=== PATIENT | male | born 1985 | race Caucasian/White ===

== ENCOUNTER 2019-11-04 19:31 | Emergency (ER) | payer SELFPAY ==
[~2019-11-04] VITALS: Ht 172.7 cm; Wt 104.4 kg
--- NOTE | 2019-11-04 19:49 | NUR ---
PT C/O N/V/D SINCE 0600 THIS AM. PT STATES HE CONTINUES WITH DRY HEAVES UP UNTIL THE LEFT THE HOUSE. PT CONNECTED TO MONITORING. FAMILY AT BEDSIDE.
[2019-11-04] MEDS ORDERED: ONDANSETRON 2MG/ML, 2ML ONE (20:20)
[2019-11-04] MEDS ORDERED: SODIUM CHLORIDE FLUSH 10ML SYR IVF ONE (20:30)
[2019-11-04] MEDS ORDERED: ONDANSETRON 2MG/ML, 2ML IVPush ONE (20:30)
[2019-11-04] MEDS ORDERED: SODIUM CHLORIDE 0.9% 1,000ML IVBOLUS ONE (20:30)
[2019-11-04 20:48] LABS: BASOPHILS # (AUTO) 0.03 x10^3/uL (0-0.1); BASOPHILS % (AUTO) 0 % (0-1); EOSINOPHILS % (AUTO) 0 % (1-7); LYMPHOCYTES # (AUTO) 0.83 x10^3/uL (1-3.4); LYMPHOCYTES % (AUTO) 6 % (22-44); MD NO; MEAN CORPUSCULAR HEMOGLOBIN 27.8 pg (27.5-34.5); MEAN CORPUSCULAR HGB CONC 33.5 g/dL (33.2-36.2); MEAN PLATELET VOLUME 8.6 fL (7.4-10.4); MONOCYTES # (AUTO) 0.29 x10^3/uL (0.2-0.8); MONOCYTES % (AUTO) 2 % (2-9); NEUTROPHILS # (AUTO) 13.43 x10^3/uL (1.8-6.8); NEUTROPHILS % (AUTO) 92 % (42-75); PLATELET COUNT 307 x10^3/uL (130-400); RED BLOOD COUNT 5.45 x10^6/uL (4.38-5.82)
[2019-11-04 20:55] LABS: ALANINE AMINOTRANSFERASE 36 U/L (12-78); ALBUMIN 4.3 g/dL (3.4-5.0); ANION GAP 10 mmol/L (5-15); CALCIUM 9.5 mg/dL (8.5-10.1); CHLORIDE 106 mmol/L (98-107); CREATININE 0.82 mg/dL (0.7-1.3)
[2019-11-04 20:57] LABS: ALKALINE PHOSPHATASE 82 U/L (45-117); BILIRUBIN,TOTAL 0.8 mg/dL (0.2-1.0); TOTAL PROTEIN 8.6 g/dL (6.4-8.2)
[2019-11-04] MEDS ORDERED: PROMETHAZINE 25 MG/ML, 1ML ONE (21:32)
--- NOTE | 2019-11-04 21:37 | NUR ---
PT CO OF NAUSEA. MD NOTIFIED. SEE MAR FOR INTERVENTIONS
[2019-11-04] MEDS ORDERED: PROMETHAZINE 25 MG/ML, 1ML IM ONE (22:00)
--- NOTE | 2019-11-04 22:01 | NUR ---
REPORT RECEIVED FROM GIULIA MICHAEL. ALL RESULTS BACK, PATIENT UP FOR RECHECK
[2019-11-04] MEDS ORDERED: METOCLOPRAMIDE 5 MG/ML, 2ML ONE (22:18)
[2019-11-04] MEDS ORDERED: SODIUM CHLORIDE 0.9%, 500ML IVBOLUS ONE (22:30)
[2019-11-04] MEDS ORDERED: POTASSIUM CHLORIDE 20 MEQ TAB.ER.PRT PO ONE (22:30)
[2019-11-04] MEDS ORDERED: METOCLOPRAMIDE 5 MG/ML, 2ML IVPush ONE (22:30)
[2019-11-04] MEDS ORDERED: POTASSIUM CHLORIDE 20 MEQ TAB.ER.PRT ONE (22:31)
--- NOTE | 2019-11-04 22:34 | NUR ---
PATIENT MEDICATED PER EMAR, TOLERATED WELL. IVF RUNNING
[2019-11-04 23:51] VITALS: BP 140/82
--- NOTE | 2019-11-04 23:51 | NUR ---
Patient given discharge instructions and they have confirmed that they understand the instructions. Patient ambulatory with steady gait.
== END 2019-11-04 23:54 | disposition home or self-care (01) ==
LOC: ED 19:56
DX: A08.39 Other viral enteritis (principal); R11.2 Nausea with vomiting, unspecified
CPT/HCPCS: 36415; 80053; 83605; 83690; 85025; 96361; 96372; 96374; 96375; 99284; J2405; J2550; J2765; J7030; J7040

== ENCOUNTER 2019-11-08 12:59 | Observation (INO) | payer OTHER ==
[~2019-11-08] VITALS: Ht 172.7 cm; Wt 102.4 kg
[2019-11-08] MEDS ORDERED: ONDANSETRON 2MG/ML, 2ML ONE (13:42)
[2019-11-08] MEDS ORDERED: FAMOTIDINE 20 MG/2 ML ONE (13:42)
[2019-11-08] MEDS ORDERED: SODIUM CHLORIDE 0.9% 1,000ML IVBOLUS ONE (14:00)
[2019-11-08] MEDS ORDERED: ONDANSETRON 2MG/ML, 2ML IVPush ONE (14:00)
[2019-11-08] MEDS ORDERED: SODIUM CHLORIDE FLUSH 10ML SYR IVF ONE (14:00)
[2019-11-08] MEDS ORDERED: FAMOTIDINE 20 MG/2 ML IVPush ONE (14:00)
--- NOTE | 2019-11-08 14:06 | NUR ---
PATIENT SITTING IN BED COMFORTABLY. CONTINUOUS PULSE OX AND BP MONITORING. NAD. VSS. FRIEND AT BEDSIDE. PT AND FRIEND STATED "LAST TIME ZOFRAN DID NOT HELP WITH THE NAUSEA, MARYJO DID, BUT IS WILLING TO TRY ZOFRAN FIRST". COMFORT MEASURES PROVIDED. PT HAS NO NEEDS AT THIS TIME.
[2019-11-08 14:18] LABS: BASOPHILS # (AUTO) 0.03 x10^3/uL (0-0.1); BASOPHILS % (AUTO) 0 % (0-1); EOSINOPHILS % (AUTO) 0 % (1-7); LYMPHOCYTES # (AUTO) 1.05 x10^3/uL (1-3.4); LYMPHOCYTES % (AUTO) 8 % (22-44); MD NO; MEAN CORPUSCULAR HEMOGLOBIN 27.5 pg (27.5-34.5); MEAN CORPUSCULAR HGB CONC 32.8 g/dL (33.2-36.2); MEAN CORPUSCULAR VOLUME 83.7 fL (81-97); MEAN PLATELET VOLUME 8.1 fL (7.4-10.4); MONOCYTES # (AUTO) 0.45 x10^3/uL (0.2-0.8); MONOCYTES % (AUTO) 3 % (2-9); NEUTROPHILS % (AUTO) 89 % (42-75); PLATELET COUNT 316 x10^3/uL (130-400); RED BLOOD COUNT 5.71 x10^6/uL (4.38-5.82); RED CELL DISTRIBUTION WIDTH 13.5 % (9.4-14.8)
[2019-11-08] MEDS ORDERED: METOCLOPRAMIDE 5 MG/ML, 2ML ONE (14:36)
[2019-11-08 14:43] LABS: ALANINE AMINOTRANSFERASE 38 U/L (12-78); ALBUMIN 4.4 g/dL (3.4-5.0); ANION GAP 9 mmol/L (5-15); CALCIUM 9.8 mg/dL (8.5-10.1); CHLORIDE 107 mmol/L (98-107); CREATININE 1.03 mg/dL (0.7-1.3)
[2019-11-08 14:45] LABS: ALKALINE PHOSPHATASE 75 U/L (45-117); BILIRUBIN,TOTAL 0.9 mg/dL (0.2-1.0); TOTAL PROTEIN 8.2 g/dL (6.4-8.2)
--- NOTE | 2019-11-08 14:59 | NUR ---
PT SITTING IN BED. ABLE TO VOID AND PROVIDE A SAMPLE. COMPLAINTS OF PERSISTENT NAUSEA PRIOR TO MEDICATION GIVEN PER EMAR. COMFORT MEASURES PROVIDED, NAD. JHAVERI AT BEDSIDE. Addendum: 11/08/19 at 1502 by RAKESH PT SITTING IN BED. ABLE TO VOID AND PROVIDE A SAMPLE. COMPLAINTS OF PERSISTENT NAUSEA WITH ONE EPISODE OF VOMITING, NO BLOOD NOTED. MEDICATION GIVEN PER EMAR. COMFORT MEASURES PROVIDED, NAD. JHAVERI AT BEDSIDE.
[2019-11-08] MEDS ORDERED: METOCLOPRAMIDE 5 MG/ML, 2ML IVPush ONE (15:00)
[2019-11-08 15:07] LABS: MICROSCOPIC NOT IND
[2019-11-08] MEDS ORDERED: PROMETHAZINE 25 MG/ML, 1ML ONE (15:45)
--- NOTE | 2019-11-08 15:53 | NUR ---
PT RESTING IN BED, FRIEND AT BEDSIDE. MEDICATION GIVEN PER EMAR FOR PERSISTENT NAUSEA. NAD. COMFORT MEASURES IN PLACE, CALL LIGHT IN REACH.
[2019-11-08] MEDS ORDERED: PROMETHAZINE 25 MG/ML, 1ML IM ONE (16:00)
[2019-11-08] MEDS ORDERED: OMAL150V IM (16:45)
--- NOTE | 2019-11-08 16:45 | NUR ---
[facility]P AT BEDSIDE DISCUSSING PLAN OF CARE. ADMISSION VERSUS D/C HOME. PT AGREES TO ADMISSION. NO OTHER NEEDS AT THIS TIME. NAD. COMFORT MEASURES IN PLACE, CALL LIGHT WITHIN REACH. Addendum: 11/08/19 at 1653 by RAKESH ERP AT BEDSIDE DISCUSSING PLAN OF CARE. ADMISSION VERSUS D/C HOME. PT AGREES TO ADMISSION DUE TO PERSISTENT NAUSEA DESPITE ADMIN OF MULTIPLE ANTIEMETICS. NO OTHER NEEDS AT THIS TIME. NAD. COMFORT MEASURES IN PLACE, CALL LIGHT WITHIN REACH.
--- NOTE | 2019-11-08 17:16 | NUR ---
[facility] AT BEDSIDE.
[2019-11-08] MEDS ORDERED: NS + 20MEQ KCL 1,000 ML IV ONE (17:26)
[2019-11-08] MEDS ORDERED: ENOXAPARIN 40 MG/0.4 ML ONE (17:26)
[2019-11-08] MEDS ORDERED: ENALAPRILAT 1.25 MG/ML, 2ML IVPush PRN (17:30)
[2019-11-08] MEDS ORDERED: ENOXAPARIN 40 MG/0.4 ML SQ SCH (17:30)
[2019-11-08] MEDS ORDERED: POLYETHYLENE GLYCOL 17 GM PACKET PO PRN (17:30)
[2019-11-08] MEDS ORDERED: ONDANSETRON 2MG/ML, 2ML IVPush PRN (17:30)
[2019-11-08] MEDS ORDERED: hydrALAzine 20 MG/ML, 1ML IVPush PRN (17:30)
[2019-11-08] MEDS ORDERED: BISACODYL 10 MG SUPP PR PRN (17:30)
[2019-11-08] MEDS ORDERED: PROMETHAZINE 25 MG/ML, 1ML IM PRN (17:30)
[2019-11-08] MEDS ORDERED: ONDANSETRON ODT 4 MG PO PRN (17:30)
[2019-11-08] MEDS ORDERED: ACETAMINOPHEN 325 MG TABLET PO PRN (17:30)
[2019-11-08] MEDS ORDERED: KETOROLAC 30 MG/1 ML IV PRN (17:30)
[2019-11-08] MEDS ORDERED: DOCUSATE 100 MG CAPSULE PO PRN (17:30)
[2019-11-08] MEDS ORDERED: ALBUTEROL HFA 90 MCG/SPRAY INH PRN (17:30)
[2019-11-08] MEDS: NS + 20MEQ KCL 1,000 ML IV SCH (17:32)
--- NOTE | 2019-11-08 18:14 | NUR ---
PT LAYING IN BED. STATES "MY NAUSEA IS A LOT BETTER". ABLE TO DOZE OFF COMFORTABLY. NAD, VSS. COMFORT MEASURES PROVIDED, CALL LIGHT WITHIN REACH.
--- NOTE | 2019-11-08 18:58 | NUR ---
REPORT GIVEN TO PATRICIA PLATT AND EMILY PLATT.
[2019-11-08] MEDS ORDERED: FAMOTIDINE 20 MG TABLET ONE (20:31)
[2019-11-08] MEDS: FAMOTIDINE 20 MG TABLET PO SCH (21:00)
[2019-11-08 22:50] VITALS: BP 142/88
[2019-11-09 01:10] VITALS: BP 121/73
[2019-11-09] MEDS: NS + 20MEQ KCL 1,000 ML IV SCH (01:26)
[2019-11-09 05:58] LABS: ALANINE AMINOTRANSFERASE 28 U/L (12-78); ALBUMIN 3.4 g/dL (3.4-5.0); CREATININE 0.88 mg/dL (0.7-1.3)
[2019-11-09 06:00] LABS: ALKALINE PHOSPHATASE 59 U/L (45-117); BILIRUBIN,TOTAL 0.7 mg/dL (0.2-1.0); TOTAL PROTEIN 6.5 g/dL (6.4-8.2)
[2019-11-09 06:13] LABS: BASOPHILS # (AUTO) 0.02 x10^3/uL (0-0.1); BASOPHILS % (AUTO) 0 % (0-1); EOSINOPHILS # (AUTO) 0.13 x10^3/uL (0-0.4); EOSINOPHILS % (AUTO) 1 % (1-7); LYMPHOCYTES # (AUTO) 2.65 x10^3/uL (1-3.4); LYMPHOCYTES % (AUTO) 25 % (22-44); MD NO; MEAN CORPUSCULAR HEMOGLOBIN 27.7 pg (27.5-34.5); MEAN CORPUSCULAR VOLUME 83.8 fL (81-97); MONOCYTES # (AUTO) 0.93 x10^3/uL (0.2-0.8); MONOCYTES % (AUTO) 9 % (2-9); NEUTROPHILS # (AUTO) 7.09 x10^3/uL (1.8-6.8); NEUTROPHILS % (AUTO) 66 % (42-75); PLATELET COUNT 261 x10^3/uL (130-400); RED BLOOD COUNT 5.03 x10^6/uL (4.38-5.82); RED CELL DISTRIBUTION WIDTH 13.8 % (9.4-14.8)
[2019-11-09 06:40] LABS: ANION GAP 7 mmol/L (5-15); CHLORIDE 111 mmol/L (98-107)
[2019-11-09 07:31] VITALS: BP 131/78
[2019-11-09] MEDS: FAMOTIDINE 20 MG TABLET PO SCH (08:06)
[2019-11-09] MEDS ORDERED: ALBU18HF INH (10:41)
[2019-11-09 12:24] VITALS: BP 148/88
== END 2019-11-09 13:15 | disposition home or self-care (01) ==
LOC: ED 13:33 → INTOOBSV 17:15 → EDIP 17:15 → 3N 21:38
PROVIDERS: ADMIT Internal Medicine; ATTEND Internal Medicine
DX: R11.2 Nausea with vomiting, unspecified (principal); D72.829 Elevated white blood cell count, unspecified; E87.6 Hypokalemia; I10 Essential (primary) hypertension; J45.909 Unspecified asthma, uncomplicated; Z79.899 Other long term (current) drug therapy
CPT/HCPCS: 36415; 74176; 80053; 81003; 83690; 83735; 84100; 85025; 96361; 96365; 96366; 96372; 96375; 99285; G0378; J1650; J2405; J2550; J2765; J3480; J3490; J7030